=== PATIENT | male | born 1965 | race Caucasian/White ===

== ENCOUNTER 2017-10-18 04:58 | Emergency (ER) | payer OTHER ==
[2017-10-18 05:09] VITALS: BP 156/83
[2017-10-18 05:35] LABS: PLATELET COUNT 244 10^3/uL (150-400)
--- NOTE | 2017-10-18 05:49 | EDPHY ---
H & P Stated Complaint: l upper abd pain Time Seen by Provider: 10/18/17 05:12 HPI/ROS: Chief Complaint: Abdominal pain HPI: 52-year-old male presenting with 3 days of worsening left sided upper abdominal pain. Patient states that began as a mild nagging pain on Tuesday. Tuesday through a bit worse over the course today. He stay home yesterday from work but by the end today was feeling well indeed a normal dinner. At worst it was a 3/10. This morning patient woke up with pain a little bit worse in the left side, primarily in the left upper quadrant. Is at its worst is a 5/10 this morning. Is now down to about a 4. No nausea or vomiting. No constipation or diarrhea. He states that he does the take fiber regularly in that if he does not he has had a trouble with constipation. He did have a colonoscopy in May which showed some mild diverticulosis but no diverticulitis. No fevers or chills. No dark tarry stools. He had a similar episode that this 6 years ago but the pain was much more severe at that time. He had a CT scan which showed constipation but was otherwise negative. Patient states that he has noted that he has had some decrease in his fiber intake recently which often causes him some constipation. ROS: 10 point Review of Systems is negative except as noted in the HPI. Social History: No smoking, rare alcohol, rare marijuana Family History: non-contributory Physical Exam: Gen: Awake, Alert, No Distress HEENT: Nose: no rhinorrhea Eyes: PERRLA, EOMI Mouth: Moist mucosa Neck: Supple, no JVD Chest: nontender, lungs clear to auscultation Heart: S1, S2 normal, no murmur Abd: Soft, very mild left mid abdominal tenderness without guarding fullness or mass Back: no CVA tenderness, no midline tenderness Ext: no edema, non-tender Skin: no rash Neuro: CN II-XII intact, Sensation grossly intact, Strength 5/5 in bilateral upper and lower extremities - Personal History Current Tetanus/Diphtheria Vaccine: Yes Current Tetanus Diphtheria and Acellular Pertussis (TDAP): Yes - Medical/Surgical History Hx Asthma: No Hx Chronic Respiratory Disease: No Hx Diabetes: No Hx Cardiac Disease: No Hx Renal Disease: No Hx Cirrhosis: No Hx Alcoholism: No Hx HIV/AIDS: No Hx Splenectomy or Spleen Trauma: No - Social History Smoking Status: Current some day smoker Constitutional: Initial Vital Signs Temperature (C) 36.4 C 10/18/17 05:05 Heart Rate 64 10/18/17 05:05 Respiratory Rate 18 10/18/17 05:05 Blood Pressure 156/83 H 10/18/17 05:05 O2 Sat (%) 99 10/18/17 05:05 O2 Delivery Mode Room Air Allergies/Adverse Reactions: No Known Allergies Allergy (Unverified 10/18/17 05:05) Home Medications: Medication Instructions Recorded Adalimumab [Humira] 0 mg 10/18/17 NK [No Known Home Meds] 10/18/17 Medical Decision Making - Diagnostics Imaging Results: Abdominal x-ray shows constipation per my interpretation. Imaging: I viewed and interpreted images myself ED Course/Re-evaluation: 52-year-old male presenting with left-sided abdominal pain. Abdomen is soft and benign. Has no white count. Does have significant constipation on his x- ray. I do not think he has evidence of diverticulitis at this time, episode is very mild. Certainly has constipation. Plan will be to discharge him home on a constipation regimen, follow up with primary care physician in 2-3 days for further evaluation. His abdomen is soft and benign and certainly nonsurgical. - Data Points Laboratory Results: Laboratory Results 10/18/17 05:29 10/18/17 05:29 10/18/17 10/18/17 05:29 05:29 WBC 7.38 10^3/uL 10^3/uL (3.80-9.50) RBC 5.49 10^6/uL 10^6/uL (4.40-6.38) Hgb 16.7 g/dL g/dL (13.7-17.5) Hct 46.5 % % (40.0-51.0) MCV 84.7 fL fL (81.5-99.8) MCH 30.4 pg pg (27.9-34.1) MCHC 35.9 g/dL g/dL (32.4-36.7) RDW 13.1 % % (11.5-15.2) Plt Count 244 10^3/uL 10^3/uL (150-400) MPV 8.3 fL L fL (8.7-11.7) Neut % (Auto) 71.7 % % (39.3-74.2) Lymph % (Auto) 17.3 % % (15.0-45.0) [place] % (Auto) 8.9 % % (4.5-13.0) Eos % (Auto) 0.9 % % (0.6-7.6) Baso % (Auto) 0.7 % % (0.3-1.7) Nucleat RBC Rel Count 0.0 % % (0.0-0.2) Absolute Neuts (auto) 5.28 10^3/uL 10^3/uL (1.70-6.50) Absolute Lymphs (auto) 1.28 10^3/uL 10^3/uL (1.00-3.00) Absolute Monos (auto) 0.66 10^3/uL 10^3/uL (0.30-0.80) Absolute Eos (auto) 0.07 10^3/uL 10^3/uL (0.03-0.40) Absolute Basos (auto) 0.05 10^3/uL 10^3/uL (0.02-0.10) Absolute Nucleated RBC 0.00 10^3/uL 10^3/uL (0-0.01) Immature Gran % 0.5 % % (0.0-1.1) Immature Gran # 0.04 10^3/uL 10^3/uL (0.00-0.10) Sodium 143 mEq/L mEq/L (135-145) Potassium 4.1 mEq/L mEq/L (3.3-5.0) Chloride 103 mEq/L mEq/L (97-110) Carbon Dioxide 23 mEq/l mEq/l (22-31) Anion Gap 17 mEq/L H mEq/L (8-16) BUN 16 mg/dL mg/dL (7-23) Creatinine 0.8 mg/dL mg/dL (0.7-1.3) Estimated GFR > 60 Glucose 114 mg/dL H mg/dL (70-100) Calcium 9.5 mg/dL mg/dL (8.5-10.4) Total Bilirubin 1.2 mg/dL mg/dL (0.1-1.4) AST 17 IU/L IU/L (17-59) ALT 28 IU/L IU/L (21-72) Alkaline Phosphatase 76 IU/L IU/L (38-126) Total Protein 8.0 g/dL g/dL (6.3-8.2) Albumin 4.6 g/dL g/dL (3.5-5.0) Departure - Departure Disposition: Home, Routine, Self-Care Clinical Impression: Constipation Condition: Good Instructions: Constipation (ED) Additional Instructions: Make sure to drink at least eight 8 oz glasses of water a day. You may take MiraLax daily according to package instructions. If you feel constipated drink 1/2 bottle of magnesium citrate. Wait 1-2 hours. If you do not have a bowel movement after that time drink the 2nd half of the bottle. If you continues to be constipated you may use a Fleet's enema, available over- the-counter. Follow up with primary care physician in 2-3 days for further evaluation. Return to the emergency depart for increasing abdominal pain, nausea vomiting, fevers, chills, or any other concerns. Referrals: Gage Lowry MD [Primary Care Provider] - As per Instructions
== END 2017-10-18 06:36 | disposition home or self-care (01) ==
DX: K59.00 Constipation, unspecified (principal); F17.200 Nicotine dependence, unspecified, uncomplicated